=== PATIENT | female | born 1995 | race Caucasian/White ===

== ENCOUNTER 2019-08-27 06:49 | Inpatient (IN) ==
[2019-08-27] MEDS ORDERED: Ringers Solution, Lactated 1,000 ML ONE ×4 (08:06→18:44)
[2019-08-27] MEDS ORDERED: Oxytocin 20 units/ LR 1000 mL 20 UNIT/1,000 ML BAG IVC ONE (10:46)
[2019-08-27] MEDS ORDERED: *HR* Nalbuphine 10 MG/ML AMPUL ONE (14:58)
[2019-08-27] MEDS ORDERED: Epidural Premix (fent/bupiv) 110 ML EP ONE (17:12)
[2019-08-27] MEDS ORDERED: EPHEDrine 50 MG/ML VIAL ONE (17:53)
[2019-08-27] MEDS ORDERED: Ondansetron 4 MG/2 ML VIAL ONE (18:07)
[2019-08-27] MEDS ORDERED: Lidocaine 1% 20 ML MDV INFILT PRN (19:19)
[2019-08-27] MEDS ORDERED: Ondansetron 4 MG/2 ML VIAL IVP PRN (19:19)
[2019-08-27] MEDS ORDERED: *HR* Nalbuphine 10 MG/ML AMPUL IVP PRN (19:19)
[2019-08-27] MEDS ORDERED: Metoclopramide 10 MG/2 ML VIAL IVP PRN (19:19)
[2019-08-27] MEDS ORDERED: Naloxone 0.4 MG/ML INJ IVP PRN (19:19)
[2019-08-27] MEDS ORDERED: Famotidine 20 MG/2 ML VIAL IVP PRN (19:19)
[2019-08-27] MEDS ORDERED: Oxytocin 20 units/ LR 1000 mL 20 UNIT/1,000 ML BAG IVC SCH (19:30)
[2019-08-27] MEDS ORDERED: Ringers Solution, Lactated 1,000 ML IVC SCH (19:30)
[2019-08-27] MEDS ORDERED: Epidural Premix (fent/bupiv) 110 ML EP SCH (21:30)
[2019-08-27] MEDS ORDERED: Ibuprofen 600 MG TABLET PO ONE (22:31)
[2019-08-27] MEDS ORDERED: ceFAZolin 1,000 MG in 0.9 % Sodium Chloride Mini Bag 100 ML IVPB SCH ×2 (22:33→22:45)
[2019-08-27 22:57] LABS: Amphetamine Screen,Urine Negative ng/mL (Cutoff=1000); Barbiturate Screen,Urine Negative ng/mL (Cutoff=200); Benzodiazepines Screen,Urine Negative ng/mL (Cutoff=200); Cannabinoid Screen,Urine Negative ng/mL (Cutoff = 50); Cocaine Screen,Urine Negative ng/mL (Cutoff= 300); Opiate Screen,Urine Negative ng/mL (Cutoff=300); Phencyclidine Screen,Urine Negative ng/mL (Cutoff=25)
[2019-08-27 22:59] LABS: Basophils % 0.1 %; Eosinophils # 0.1 K/mcL (0.0-0.6); Hemoglobin 12.1 g/dL (11.5-15.4); Immature Granulocytes % 0.4 % (0-4); Lymphocytes # 1.5 K/mcL (0.6-4.6); Lymphocytes % 16.4 %; Mean Corpuscular HGB Conc 32.7 g/dL (31.6-35.5); Mean Corpuscular Hemoglobin 27.7 pg (28.0-33.3); Mean Corpuscular Volume 84.7 fL (83.0-100.0); Mean Platelet Volume 10.1 fL (9.4-12.4); Monocytes # 0.6 K/mcL (0.0-1.3); Monocytes % 6.5 %; Neutrophils # 6.7 K/mcL (1.6-8.9); Platelet Count 297 K/mcL (140-400); Red Blood Count 4.37 M/mcL (3.82-4.97); Red Cell Distribution Width 15.1 % (11.5-14.5); Segmented Neutrophils % 75.6 %; White Blood Count 8.9 K/mcL (4.3-11.1)
[2019-08-27 23:10] LABS: Protein/Creatinine Ratio,Urine 0.33 mg/mg (0.00-0.20)
[2019-08-27 23:20] LABS: Alanine Aminotransferase 119 Units/L (7-52); Aspartate Amino Transferase 110 Units/L (13-39); BUN/Creatinine Ratio 9 (6-26); Blood Urea Nitrogen 6 mg/dL (6-20); Lactate Dehydrogenase 153 Units/L (140-271); Uric Acid 6.4 mg/dL (2.3-7.6); eGFR For African Americans > 60 (> 60); eGFR For Non-African Americans > 60 (> 60)
[2019-08-27] MEDS ORDERED: Methylergonovine 0.2 MG/ML AMPUL IM ONE (23:54)
[2019-08-27] MEDS ORDERED: miSOPROStol 100 MCG TABLET PO ONE (23:54)
[2019-08-28] MEDS ORDERED: Acetaminophen 325 MG TABLET PO PRN (00:21)
[2019-08-28] MEDS ORDERED: Oxytocin 20 units/ LR 1000 mL 20 UNIT/1,000 ML BAG IVC SCH (00:21)
[2019-08-28] MEDS ORDERED: Benzocaine/Menthol 56 GM AEROSOL SPRAY TP PRN (00:21)
[2019-08-28] MEDS ORDERED: Rho Immune Globulin 1,500 UNIT SYRINGE IM PRN (00:21)
[2019-08-28] MEDS ORDERED: Oxytocin 20 units/ LR 1000 mL 20 UNIT/1,000 ML BAG IVC ONE (00:24)
[2019-08-28] MEDS: *HR* HYDROcodone/Acet 5/325 mg TABLET PO PRN ×2 (01:31→14:47)
[2019-08-28] MEDS: ceFAZolin 1,000 MG in 0.9 % Sodium Chloride Mini Bag 100 ML IVPB SCH ×2 (07:11→14:48)
[2019-08-28] MEDS: Ibuprofen 600 MG TABLET PO PRN ×2 (07:45→17:04)
[2019-08-28] MEDS ORDERED: Prenatal Vit/FA 1 EACH TABLET PO SCH (09:00)
[2019-08-28 16:54] LABS: Basophils % 0.3 %; Eosinophils # 0.1 K/mcL (0.0-0.6); Eosinophils % 0.9 %; Hematocrit 25.7 % (35.3-44.9); Hemoglobin 8.4 g/dL (11.5-15.4); Immature Granulocytes % 0.4 % (0-4); Mean Corpuscular HGB Conc 32.7 g/dL (31.6-35.5); Mean Corpuscular Hemoglobin 28.1 pg (28.0-33.3); Mean Platelet Volume 10.4 fL (9.4-12.4); Monocytes # 0.8 K/mcL (0.0-1.3); Monocytes % 6.9 %; Neutrophils # 8.2 K/mcL (1.6-8.9); Platelet Count 302 K/mcL (140-400); Red Blood Count 2.99 M/mcL (3.82-4.97); Segmented Neutrophils % 73.5 %; White Blood Count 11.2 K/mcL (4.3-11.1)
[2019-08-28 17:10] LABS: Alanine Aminotransferase 78 Units/L (7-52); Aspartate Amino Transferase 72 Units/L (13-39); BUN/Creatinine Ratio 11 (6-26); Blood Urea Nitrogen 9 mg/dL (6-20); Lactate Dehydrogenase 171 Units/L (140-271); Uric Acid 5.9 mg/dL (2.3-7.6); eGFR For African Americans > 60 (> 60); eGFR For Non-African Americans > 60 (> 60)
[2019-08-29 01:31] VITALS: BP 116/62
== END 2019-08-28 23:55 | disposition home or self-care (01) | DRG 541 ==
LOC: 1NENULAB 06:49 → 1NENUOBS 08-28 00:20
PROVIDERS: ADMIT Student in an Organized Health Care Education/Training Program; ATTEND Student in an Organized Health Care Education/Training Program